=== PATIENT | female | born 1955 | race Caucasian/White ===

== ENCOUNTER → 2018-04-30 | Outpatient (CLI) | payer OTHER, MEDICARE | LOC: FIMAGING 11:21 | PROVIDERS: ATTEND Orthopaedic Surgery | DX: M17.11 Unilateral primary osteoarthritis, right knee (principal) ==

== ENCOUNTER 2018-05-17 05:55 | Inpatient (IN) | payer OTHER, MEDICARE ==
[2018-05-17] MEDS ORDERED: TRANEXAMIC ACID 1,000 MG in NS 100 ML IV ONE (06:00)
[2018-05-17] MEDS ORDERED: ceFAZolin 2 GM/DEXTROSE 100 ML IV ONE (06:00)
[2018-05-17] MEDS ORDERED: ROPIVACAINE 0.2% 80 MG, EPINEPHrine 0.2 MG, KETOROLAC TROMETHAMINE 30 MG, morphINE 10 M... IU ONE (06:00)
[2018-05-17] MEDS ORDERED: FAMOTIDINE 20 MG TAB PO ONE (06:02)
[2018-05-17] MEDS ORDERED: ACETAMINOPHEN 325 MG TAB PO ONE (06:02)
[2018-05-17] MEDS ORDERED: LR 1,000 ML IV ONE (06:03)
--- NOTE | 2018-05-17 06:33 | PDIAF ---
- Diagnosis Diagnosis: right knee djd Code Status: Full Code - Medication Management Discharge Medications: electronically signed and located in the Home Medication List. - Orders Services needed: Home Care, Physical Therapy Home Care Face to Face: I certify that this patient was under my care and that I had the required [id number] encounter meeting the encounter requirements on the discharge day. My findings support the fact that the patient is homebound as defined in Home Care Face to Face Continued: CMS Chapter 7 Medicare Benefits Manual 30.1.1 , The condition of the patient is such that there exists a normal inability to leave home and consequently, leaving home would require a considerable and taxing effort. Diet Recommendation: no restrictions on diet Diet Texture: Regular Texture Diet Additional Instructions: TOTAL JOINT ARTHROPLASTY DISCHARGE INSTRUCTIONS 1. Your surgeon follows the [facility] protocol for reducing your risk of DVT (blood clots) following surgery. Medication will be ordered to prevent blood clots. A sudden increase in calf pain and/or swelling could indicate a blood clot in your leg. If this occurs, please call your surgeon or his/her delinquent tax collection assistant. An ultrasound of the leg may be necessary to diagnose a blood clot. If you have conditions that make you a higher risk for blood clots, your surgeon may use more aggressive ways to prevent them. Notify your surgeon if you think you are a high risk for blood clots. 2. Wear your white surgical stockings (BREANNA hose) for 2 weeks. This decreases your swelling and may help prevent blood clots. It is ok to remove BREANNA hose at night time to give your legs a break. 3. Swelling and bruising in the surgical leg is common. If you feel that it is excessive, please notify your surgeon. 4. Elevate your surgical leg with the ankle above the hip several times every day. Please keep the leg straight when you elevate by putting pillows under your foot. Do not put pillows under your knee. This will make being able to fully straighten more difficult. This is uncomfortable, but try to do it as much as possible. 5. For total knee replacements use compressive wrap on your knee for 3-5 days after surgery, then you can discontinue it. 6. Use a walker or crutches for 1-2 weeks. Progress your weight-bearing as tolerated. You may start to use a cane when you feel stable and safe. 7. You will receive physical therapy instructions in the hospital. Continue those exercises at home. There are additional exercises in the total joint booklet you were given before surgery. Outpatient physical therapy will begin 7- 10 days after surgery. Please schedule this in advance. 8. Use ice on your knee at least 3-5 times every day for 30 minutes. This helps reduce pain and swelling. Also use it at night before falling asleep. 9. Leave your surgical dressing in place for 2 weeks. Your dressing is water resistant, but not waterproof. Cover it with Saran Wrap or Yiqiy-f-Tsir before showering. You may shower as soon as you feel safe entering a shower. If you notice bleeding from your incision 2 or 3 days after surgery, please notify your surgeon. 10. Due to narcotics, decreased activity and altered diet, most patients experience constipation after surgery. Use qdms-dfa-knailst stool softeners while you are on narcotics. 11. You may drive a car when you are comfortable bearing weight, have good muscular control of your leg and are off narcotics. This usually occurs 2-4 weeks after surgery, depending on which leg was operated on. 12. If there are questions not addressed here, please refer the [facility] book given for more information. If you still have questions, please contact your surgeon s office. 13. If you have a life-threatening emergency, please call 911 and go to the emergency room immediately. For non-life threatening emergencies, please call your physicians office for advice before going to the emergency room. - Follow Up Care Current Providers and Referrals: Anaya Stewart MD [Primary Care Provider] - Wang Kc MD [Medical Doctor] -
--- NOTE | 2018-05-17 06:34 | PDHPUP ---
History & Physical Update H&P update statement: This history and physical update is based on an assessment of the patient which was completed after admission or registration (within 24 hours), but prior to the surgery/procedure. H&P update: no change in patient's condition since H&P completed
[2018-05-17] MEDS ORDERED: CALCIUM CHLORIDE 1 GM/10 ML INJ ONE (06:45)
[2018-05-17] MEDS ORDERED: ceFAZolin 1 GM/5 ML SYR ONE (06:45)
[2018-05-17] MEDS ORDERED: THROMBIN (BOVINE) 5,000 UNIT VIAL TP ONE (06:45)
[2018-05-17] MEDS ORDERED: MIDAZOLAM 2 MG/2 ML VIAL IVP ONE (06:51)
[2018-05-17] MEDS ORDERED: fentaNYL 100 MCG/2 ML INJ ONE ×3 (06:54→08:50)
[2018-05-17] MEDS ORDERED: PROPOFOL/EMULSION 500 MG/50 ML BOTTLE IV ONE (06:54)
--- NOTE | 2018-05-17 06:54 | PDANEPAE ---
ANE History of Present Illness 63 year old woman for right TKA. + hypertension, obesity and lupus anticoagulant. ANE Past Medical History - Cardiovascular History Hx Hypertension: Yes Hx Arrhythmias: No Hx Chest Pain: No Hx Coronary Artery / Peripheral Vascular Disease: No Hx CHF / Valvular Disease: Yes Hx Palpitations: No Cardiovascular History Comment: scar tissue in heart/leaky valve r/t endocarditis 2006 - Pulmonary History Hx COPD: No Hx Asthma/Reactive Airway Disease: No Hx Recent Upper Respiratory Infection: No Hx Oxygen in Use at Home: No Hx Sleep Apnea: No Sleep Apnea Screening Result - Last Documented: Negative - Neurologic History Hx Cerebrovascular Accident: Yes Hx Seizures: No Hx Dementia: No Neurologic History Comment: stroke 1999 - Endocrine History Hx Diabetes: No - Renal History Hx Renal Disorders: No - Liver History Hx Hepatic Disorders: Yes Hepatic History Comment: fatty liver - Neurological & Psychiatric Hx Hx Neurological and Psychiatric Disorders: Yes Neurological / Psychiatric History Comment: difficulty with word finding. short term memory issues - Cancer History Hx Cancer: No - Congenital Disorder History Hx Congenital Disorders: No - GI History Hx Gastrointestinal Disorders: Yes Gastrointestinal History Comment: acid reflux - Other Health History Other Health History: anticoagulant lupus. rough/dry skin. bruises easily. Hx DVT/phlebitis - Chronic Pain History Chronic Pain: Yes (right wrist) - Surgical History Prior Surgeries: none in last 5 yrs. 2006 uterine ablation. cholecystectomy 2000. colonoscopy 2016 ANE Review of Systems Review of systems is: negative Review of Systems: - Exercise capacity METS (RN): 4 METS ANE Patient History - Allergies Allergies/Adverse Reactions: adhesive tape Allergy (Verified 05/03/18 10:46) Other-Enter Comments - Home Medications Home Medications: Amoxicillin Trihydrate [Amoxicillin] 2,000 mg PO AD 04/26/18 [Last Taken Unknown ] Aspirin [Aspirin 81mg (*)] 81 mg PO DAILY 04/26/18 [Last Taken Unknown] Atorvastatin Calcium [Lipitor 40 mg (*)] 40 mg PO DAILY 04/26/18 [Last Taken Unknown] Calcium Carb W/Vit D [Calcium Carb W/Vit D 500/200 (*)] 500 mg PO BID 04/26/18 [ Last Taken Unknown] FLUoxetine [Prozac 20 MG (*)] 40 mg PO DAILY 04/26/18 [Last Taken Unknown] Herbals/Supplements -Info Only 1 ea PO DAILY 04/26/18 [Last Taken Unknown] Levothyroxine [Synthroid 112 mcg (*)] 112 mcg PO DAILY06 04/26/18 [Last Taken Unknown] Multivitamins [Multivitamin (*)] 1 each PO DAILY 04/26/18 [Last Taken Unknown] Polyethylene Glycol 3350 [Miralax 17 gm (*)] 17 gm PO DAILY PRN 04/26/18 [Last Taken Unknown] Warfarin Sodium [Coumadin 5MG (*)] 5 mg PO DAILY16 04/26/18 [Last Taken Unknown] amLODIPine BESYLATE [Norvasc 5 mg (*)] 5 mg PO DAILY 04/26/18 [Last Taken Unknown] - NPO status NPO Since - Liquids (Date): 05/16/18 NPO Since - Liquids (Time): 23:00 NPO Since - Solids (Date): 05/16/18 NPO Since - Solids (Time): 18:00 - Smoking Hx Smoking Status: Never smoked - Family Anes Hx Family Hx Anesthesia Complications: mother: resp arrest within 1-2 hrs post procedure ANE Labs/Vital Signs - Vital Signs Blood Pressure: 140/82 Heart Rate: 70 Respiratory Rate: 16 O2 Sat (%): 94 Height: 160.02 cm Weight: 83.007 kg ANE Physical Exam - Airway Neck exam: FROM Mallampati Score: Class 2 Mouth exam: normal dental/mouth exam - Pulmonary Pulmonary: no respiratory distress - Cardiovascular Cardiovascular: regular rate and rhythym - ASA Status ASA Status: III ANE Anesthesia Plan Anesthesia Plan: spinal Regional Anesthesia: adductor canal FNB
[2018-05-17] MEDS ORDERED: BUPIVACAINE 0.5% 30 ML SDV ONE (07:09)
[2018-05-17] MEDS ORDERED: PROPOFOL 200 MG/20 ML VIAL ONE (07:13)
[2018-05-17] MEDS ORDERED: LABETALOL HCL 5 MG/ML 20 ML MDV IVP PRN (07:47)
[2018-05-17] MEDS ORDERED: HYDROmorphONE/DILAUDID 2 MG/ML INJ IVP PRN (07:47)
[2018-05-17] MEDS ORDERED: NALOXONE HCL 0.4 MG/ML INJ IVP PRN (07:47)
[2018-05-17] MEDS ORDERED: PROMETHAZINE HCL 25 MG/ML INJ IVP PRN ×2 (07:47→08:21)
[2018-05-17] MEDS ORDERED: ONDANSETRON 4 MG/2 ML VIAL IVP PRN ×2 (07:47→08:21)
[2018-05-17] MEDS ORDERED: LR 500 ML IV PRN (07:47)
[2018-05-17] MEDS ORDERED: ALBUTEROL 3 ML DEYVIAL IH PRN (07:47)
[2018-05-17] MEDS ORDERED: PHENYLEPHRINE HCL 100 MCG/ML SYR IVP PRN (07:47)
[2018-05-17] MEDS ORDERED: oxyCODONE IR 5 MG TAB PO PRN (07:47)
[2018-05-17] MEDS ORDERED: TEMAZEPAM 15 MG CAP PO PRN (08:21)
[2018-05-17] MEDS ORDERED: diphenhydrAMINE 25 MG CAP PO PRN (08:21)
[2018-05-17] MEDS ORDERED: PROMETHAZINE HCL 25 MG SUPPR PR PRN (08:21)
[2018-05-17] MEDS ORDERED: DIPHENOXYLATE/ATROPINE LOMOTIL 1 TAB PO PRN (08:21)
[2018-05-17] MEDS ORDERED: BISACODYL 10 MG SUPP PR PRN (08:21)
[2018-05-17] MEDS ORDERED: ONDANSETRON DISINTEGRATING 4 MG TAB PO PRN (08:21)
[2018-05-17] MEDS ORDERED: POLYETHYLENE GLYCOL 3350 17 GM PKT PO PRN ×2 (08:21→08:23)
[2018-05-17] MEDS ORDERED: METOCLOPRAMIDE 10 MG/2 ML VIAL IVP PRN (08:21)
[2018-05-17] MEDS ORDERED: LACTULOSE 20 GM/30 ML UDCUP PO PRN (08:21)
[2018-05-17] MEDS ORDERED: MAGNESIUM HYDROXIDE 30 ML UDCUP PO PRN (08:21)
--- NOTE | 2018-05-17 08:21 | POSTOPPROG ---
Post Op Note Date of Operation: 05/17/18 Surgeon: Wang Kc Dietitian Teaching: yecenia Anesthesiologist: lalo Anesthesia: GET(General Endotracheal) Pre-op Diagnosis: right knee djd Post-op Diagnosis: jaden Indication: same Procedure: right tka Inf/Abcess present in the surg proc area at time of surgery?: No Depth: Deep Incisional (Fascial) EBL: 100-500
[2018-05-17] MEDS ORDERED: LR 1,000 ML IV SCH (08:30)
[2018-05-17] MEDS ORDERED: ONDANSETRON 4 MG/2 ML VIAL ONE (08:50)
--- NOTE | 2018-05-17 08:51 | POSTANESTH ---
Post Anesthetic Evaluation Cardiovascular Status: Normal, Stable Respiratory Status: Normal, Stable Level of Consciousness/Mental Status: Mildly Sleepy, Arousable Pain Control: Adequate, Prn Tx Ordered Nausea/Vomiting Control: Adequate, Prn Tx Ordered Complications Possibly Related to Anesthesia: None Noted (Adductor Canal block done from [id number]. Right leg, sterile technique. Bupivicaine .5% 22 cc. Neg aspiration. Ultrasound guidance. Tolerated well.)
[2018-05-17] MEDS: fentaNYL 100 MCG/2 ML INJ IVP PRN ×2 (08:57→09:08)
[2018-05-17] MEDS ORDERED: HYDROmorphONE/DILAUDID 2 MG/ML INJ ONE (09:24)
--- NOTE | 2018-05-17 09:42 | PDMN ---
Medical Necessity Medical necessity: [facility] S700 Knee Arthroplasty, Total, A-2 days: 63 yo s/p R TKA. IP status for ASA of III and multi comorbidities - HTN, obesity, endocarditis, CVA, on lupus anticoagulant, DVT/phlebitis, short term memory issues.
[2018-05-17] MEDS ORDERED: oxyCODONE IR 5 MG TAB ONE (09:56)
[2018-05-17] MEDS: oxyCODONE IR 5 MG TAB PO PRN (09:57)
[2018-05-17] MEDS: ENOXAPARIN 30 MG/0.3 ML SYR SC SCH ×2 (11:46→22:11)
[2018-05-17] MEDS: FLUoxetine 20 MG CAP PO SCH (11:46)
[2018-05-17] MEDS: amLODIPine BESYLATE 5 MG TAB PO SCH (11:46)
[2018-05-17] MEDS: SENNOSIDES/DOCUSATE SODIUM TAB PO SCH ×2 (11:47→21:48)
[2018-05-17] MEDS: ACETAMINOPHEN 325 MG TAB PO SCH ×3 (14:24→23:46)
[2018-05-17] MEDS: ceFAZolin 2 GM/DEXTROSE 100 ML IV SCH ×2 (15:16→21:50)
[2018-05-17] MEDS: TRANEXAMIC ACID 650 MG TAB PO SCH ×2 (15:16→21:48)
[2018-05-17] MEDS ORDERED: WARFARIN SODIUM 5 MG TAB PO SCH (16:00)
[2018-05-17] MEDS: CYCLOBENZAPRINE 10 MG TAB PO PRN ×2 (17:18→23:56)
[2018-05-17] MEDS: FAMOTIDINE 20 MG TAB PO SCH (21:49)
[2018-05-18] MEDS: ACETAMINOPHEN 325 MG TAB PO SCH ×2 (05:27→11:50)
[2018-05-18] MEDS: TRANEXAMIC ACID 650 MG TAB PO SCH (05:28)
[2018-05-18] MEDS ORDERED: LEVOTHYROXINE 112 MCG TAB PO SCH (06:00)
--- NOTE | 2018-05-18 06:59 | PDIAF ---
- Diagnosis Diagnosis: right knee djd Code Status: Full Code - Medication Management Discharge Medications: electronically signed and located in the Home Medication List. - Orders Services needed: Home Care, Physical Therapy Home Care Face to Face: I certify that this patient was under my care and that I had the required epao-mm-[id number] encounter meeting the encounter requirements on the discharge day. My findings support the fact that the patient is homebound as defined in Home Care Face to Face Continued: CMS Chapter 7 Medicare Benefits Manual 30.1.1 , The condition of the patient is such that there exists a normal inability to leave home and consequently, leaving home would require a considerable and taxing effort. Diet Recommendation: no restrictions on diet Diet Texture: Regular Texture Diet Additional Instructions: TOTAL JOINT ARTHROPLASTY DISCHARGE INSTRUCTIONS 1. Your surgeon follows the [facility] protocol for reducing your risk of DVT (blood clots) following surgery. Medication will be ordered to prevent blood clots. A sudden increase in calf pain and/or swelling could indicate a blood clot in your leg. If this occurs, please call your surgeon or his/her certified surgical assistant. An ultrasound of the leg may be necessary to diagnose a blood clot. If you have conditions that make you a higher risk for blood clots, your surgeon may use more aggressive ways to prevent them. Notify your surgeon if you think you are a high risk for blood clots. 2. Wear your white surgical stockings (BREANNA hose) for 2 weeks. This decreases your swelling and may help prevent blood clots. It is ok to remove BREANNA hose at night time to give your legs a break. 3. Swelling and bruising in the surgical leg is common. If you feel that it is excessive, please notify your surgeon. 4. Elevate your surgical leg with the ankle above the hip several times every day. Please keep the leg straight when you elevate by putting pillows under your foot. Do not put pillows under your knee. This will make being able to fully straighten more difficult. This is uncomfortable, but try to do it as much as possible. 5. For total knee replacements use compressive wrap on your knee for 3-5 days after surgery, then you can discontinue it. 6. Use a walker or crutches for 1-2 weeks. Progress your weight-bearing as tolerated. You may start to use a cane when you feel stable and safe. 7. You will receive physical therapy instructions in the hospital. Continue those exercises at home. There are additional exercises in the total joint booklet you were given before surgery. Outpatient physical therapy will begin 7- 10 days after surgery. Please schedule this in advance. 8. Use ice on your knee at least 3-5 times every day for 30 minutes. This helps reduce pain and swelling. Also use it at night before falling asleep. 9. Leave your surgical dressing in place for 2 weeks. Your dressing is water resistant, but not waterproof. Cover it with Saran Wrap or Kjcho-a-Chew before showering. You may shower as soon as you feel safe entering a shower. If you notice bleeding from your incision 2 or 3 days after surgery, please notify your surgeon. 10. Due to narcotics, decreased activity and altered diet, most patients experience constipation after surgery. Use phex-bcd-okvvgdc stool softeners while you are on narcotics. 11. You may drive a car when you are comfortable bearing weight, have good muscular control of your leg and are off narcotics. This usually occurs 2-4 weeks after surgery, depending on which leg was operated on. 12. If there are questions not addressed here, please refer the [facility] book given for more information. If you still have questions, please contact your surgeon s office. 13. If you have a life-threatening emergency, please call 911 and go to the emergency room immediately. For non-life threatening emergencies, please call your physicians office for advice before going to the emergency room. - Follow Up Care Current Providers and Referrals: Anaya Stewart MD [Primary Care Provider] - Wang Kc MD [Medical Doctor] -
--- NOTE | 2018-05-18 07:01 | SOAPPROG ---
SOAP Progress Note Assessment/Plan: Assessment: s/p tka Plan:d/c home continue coumadin therapy, lovenox until coumadin is therapeutic, f/u with pcp for management of anticoag f/u at two weeks use pressure dressing seek attn for increasing symptoms 05/18/18 06:59 Subjective: mild pain no cp or sob peter po Objective: Vital Signs Temp Pulse Resp BP Pulse Ox 37.0 C 77 16 130/71 H 95 05/18/18 04:00 05/18/18 04:00 05/18/18 04:00 05/18/18 04:00 05/18/18 04:00 Laboratory Results 05/18/18 04:55 05/17/18 05/18/18 05/19/18 05:59 05:59 05:59 Intake Total 3500 Output Total 1870 Balance 1630 PT REJ 05/17/18 07:00 INR TNP 05/17/18 07:00 dressing intact in intact pf,df,ehl toes warm and pink neg homans laura xrays anatomic alignemnt, no fx or lucency ICD10 Worksheet Patient Problems: Problems Problem Status Onset Arthritis of knee Acute - ICD10 Problem Qualifiers (1) Arthritis of knee
[2018-05-18] MEDS: FAMOTIDINE 20 MG TAB PO SCH (09:33)
[2018-05-18] MEDS: ENOXAPARIN 30 MG/0.3 ML SYR SC SCH (09:33)
[2018-05-18] MEDS: FLUoxetine 20 MG CAP PO SCH (09:33)
[2018-05-18] MEDS: amLODIPine BESYLATE 5 MG TAB PO SCH (09:34)
[2018-05-18 09:35] VITALS: BP 122/69
[2018-05-18] MEDS: SENNOSIDES/DOCUSATE SODIUM TAB PO SCH (09:35)
[2018-05-18] MEDS: CYCLOBENZAPRINE 10 MG TAB PO PRN (09:39)
--- NOTE | 2018-05-18 10:47 | ASMTLACE ---
LACE Length of stay for Answers: 2 days current admission Acuity / Level of Answers: Yes Care: Did the patient have an inpatient admission? Comorbidities - select Answers: Cerebrovascular disease all that apply (CVA, TIA, aneurysms, vasc ular dementia) Congestive heart failure Opioid dependence / Chronic pain Other Notes: HTN # of Emergency department Answers: 0 visits in the last 6 months Score: 13 Date Signed: 05/18/2018 10:46 AM Electronically Signed By:AN Hidalgo
[2018-05-18] MEDS: oxyCODONE IR 5 MG TAB PO PRN ×2 (11:04→11:49)
--- NOTE | 2018-05-18 12:46 | GOP ---
[f rep st] OPERATIVE REPORT DATE OF OPERATION: 05/17/2018 SURGEON: Wang Kc MD NEUROSURGEON: Wang Kc MD. FOOD MIXER REPAIRER: Sixto Du, SCALE AGENT, [facility], surgical asst, who was a medical necessity for the entire ty of the case. PREOPERATIVE DIAGNOSIS: Right knee degenerative joint disease. POSTOPERATIVE DIAGNOSIS: Right knee degenerative joint disease. PROCEDURE PERFORMED: Right total knee arthroplasty. FINDINGS: SPECIMENS: To Pathology, the bony cuts. INDICATIONS: The patient is a 63-year-old woman who presents today for an elective right total knee replacement. She has end-stage arthritis. Clinical and radiographic features are consistent with th is. She has failed all attempts at conservative management. Therefore, recommended operative interv ention. I have outlined the surgical procedure, risks, benefits and alternatives, and she wished to proceed. DESCRIPTION OF PROCEDURE: The patient was identified in the preanesthesia area. The right knee guicho rly demarcated as the operative site with indelible marker. She was given 2 g of Ancef intravenously in route to the operative suite. In the OR, spinal, then general anesthetic was placed. She was po sitioned in the supine position. A tourniquet was applied to the right thigh. The limb was then teofilo rilely prepped and draped in the usual fashion. Appropriate time-out procedure was carried out. The limb was exsanguinated with an Esmarch bandage and tourniquet inflated to 275 mmHg. A standard ante rior midline incision was made. Thick subcutaneous flaps were elevated followed by medial parapatell ar arthrotomy. There was tricompartmental arthritis. Decision was made to proceed with total knee r eplacement. Two pins were then placed from medial to lateral across the distal femur and the femoral reference array affixed. The tibial reference array was fixed to 2 pins placed percutaneously acros s the mid tibia. Femoral and tibial checkpoints were then placed. All bony landmarks were entered i n the computer in standard fashion. Using the [employer] Finance[employer] software, the knee was balanced through the flexion/extension arc for a size 3 femur, size 3 tibia. Using the MAKOplasty robot, resections were made across the femur for the size 3 and the tibia for a size 3 as well. Trial reduction was zuleima d out and a 3 x 11 mm polyethylene spacer was ultimately selected. This allowed full extension of th e knee and flexion to 130 degrees with no varus or valgus instability. The trial components were wit hdrawn. The tibial and femoral components were pressed into position and a 3 x 11 mm polyethylene sp acer was placed and confirmed to be fully seated. The patella was then everted, cut in a freehand cu tting technique. Drill holes were made for a size 32 mm patella. This tracked centrally through the flexion/extension arc. The wound was copiously irrigated. The tissue injected with a joint cocktai l of ropivacaine, Toradol and epinephrine. The medial parapatellar arthrotomy closed using #1 Ethibo nd suture. The knee instilled with platelet-rich plasma. Subcutaneous tissue closed using 2-0 Monoc ryl and the skin stapled. A sterile dressing was applied. The patient was awakened, extubated and t aken to the recovery room in good, stable condition. TOTAL TOURNIQUET TIME: Fifty minutes. COMPLICATIONS: None. IMPLANTS: [place] Triathlon posterior stabilized femoral component size 3, size 3 tibia, 3 x 11 mm t hick polyethylene spacer and a 32 mm asymmetric patella. DISPOSITION: To the recovery room, then the floor. She is weightbearing and range of motion as tole rated. /[id number]/MODL
--- NOTE | 2018-05-18 12:52 | GDS ---
[f rep st] DISCHARGE SUMMARY ADMIT DIAGNOSIS: Right knee degenerative joint disease. DISCHARGE DIAGNOSIS: Right knee degenerative joint disease. NAME OF PROCEDURE: Right total knee arthroplasty. HISTORY OF PRESENT ILLNESS: The patient is a 63-year-old woman who presents for elective total knee replacement. HOSPITAL COURSE: The patient was admitted overnight after uncomplicated total knee arthroplasty. Brianne kinney tolerated the procedure well. At time of discharge, she is tolerating an oral diet. Pain is well controlled on oral medicines. She is voiding without difficulty. Dressing is clean, dry and intact. Negative Homans. X-rays are stable in anatomic alignment. DISCHARGE ACTIVITY: Weightbearing as tolerated. Range of motion as tolerated. Keep the dressing cl annie, dry and intact. Seek attention for increasing redness, swelling, drainage, discharge, bleeding, or other focal complaint. DISCHARGE MEDICATIONS: Oxycodone 5 mg 1 to 2 every 6 hours p.r.n. pain. She will be on Lovenox 30 m g subcutaneous twice daily for an additional 2 to 3 days and then resume her Coumadin therapy. /[id number]/MODL
--- NOTE | 2018-05-18 14:30 | ASMTCMCOM ---
CM Note CM Note Notes: Pt had planned knee surgery, resides with spouse. Pt medically stable for d/c with [facility], orders sent in [employer]. Pt address/phone verified. Date Signed: 05/18/2018 02:29 PM Electronically Signed By:AN Hidalgo
--- NOTE | 2018-05-18 15:23 | ASDISCHSUM ---
Discharge Information Plan Status:Home with Home Health Medically Cleared to Leave: Discharge Date:05/18/2018 02:44 PM CM D/C Disposition: ADT D/C Disposition:Home Health Service Projected Discharge Date:05/18/2018 11:00 AM Transportation at D/C: Discharge Delay Reason: Follow-Up Date:05/18/2018 11:00 AM Discharge Slot: Final Diagnosis: Placement Information Referral Type:*Home Health Care Services Referral ID:[id number] Provider Name:[facility] Address 1:[address] [place] [address] Address 2: City:[place] Selection Factors: State:[place] Patient Contact Information Contact Name:DORISABRIL Relationship: Address:[address] City:[place] Alternate Phone: State/Zip Code:[place] [address] Email: Financial Information Financial Class:Medicare Primary Plan Desc:MEDICARE INPATIENT Primary Plan Number:[id number] Secondary Plan Desc:[employer]/MDR SUPPLEMENT Secondary Plan Number:[id number] Assessment Information LACE LACE Length of stay for Answers: 2 days current admission Acuity / Level of Answers: Yes Care: Did the patient have an inpatient admission? Comorbidities - select Answers: Cerebrovascular disease all that apply (CVA, TIA, aneurysms, vasc ular dementia) Congestive heart failure Opioid dependence / Chronic pain Other Notes: HTN # of Emergency department Answers: 0 visits in the last 6 months Score: 13 Date Signed: 05/18/2018 10:46 AM Electronically Signed By:AN Hidalgo [facility] CM Progress Note CM Note CM Note Notes: Pt had planned knee surgery, resides with spouse. Pt medically stable for d/c with [facility], orders sent in [employer]. Pt address/phone verified. Date Signed: 05/18/2018 02:29 PM Electronically Signed By:AN Hidalgo Intervention Information
== END 2018-05-18 14:44 | disposition home health service (06) | DRG 470 ==
LOC: F3N 05:55 → EDSTATUS 07:15 → F3N 10:20
PROVIDERS: ADMIT Orthopaedic Surgery; ATTEND Orthopaedic Surgery
DX: M17.11 Unilateral primary osteoarthritis, right knee (principal); I10 Essential (primary) hypertension; K21.9 Gastro-esophageal reflux disease without esophagitis; Z86.73 Personal history of transient ischemic attack (TIA), and cerebral infarction without residual deficits; Z86.718 Personal history of other venous thrombosis and embolism; D68.62 Lupus anticoagulant syndrome
CPT/HCPCS: 97116-GP; 97161-GP; 97165-GO; 97530-GP; J0171; J0690; J1170; J1650; J1885; J2250; J2270; J2405; J2704; J2795; J3010